=== PATIENT | male | born 1985 ===

== ENCOUNTER 2025-01-17 05:11 | Emergency (ER) | payer SELFPAY ==
[2025-01-17 05:07] VITALS: BP 140/81; PULSE 83; RESP 12; TEMP 36.9; O2SAT 99
--- NOTE | 2025-01-17 05:24 | ED.NAVMDI ---
HPI - Nausea/Vomiting/Diarrhea General Chief complaint: Nausea/Vomiting/Diarrhea <Mati Paul MD - Last Filed: 01/18/25 03:22> Stated complaint: n/v; opiate withdrawal <Mati Paul MD - Last Filed: 01/18/25 03:22> Time Seen by Provider: 01/17/25 05:16 <Mati Paul MD - Last Filed: 01/18/25 03:22> History of Present Illness HPI Narrative: 39-year-old male with a past medical history including opiate use disorder. He states that he usually snorts heroin/fentanyl. Last use 2-3 days ago. He is trying to quit and is going through withdrawals. States he has gone through withdrawal programs before without any help. He has previously been on Suboxone without any success. EMS provided him Zofran row which did not help him. Denies any other substance use such as cocaine, methamphetamines, IV drug use, alcohol use. Endorses nausea vomiting several times for last few days and denies any other symptoms such as fevers, chest pain, shortness a breath, abdominal pain. He was otherwise in his normal state of health prior to this. <Mati Paul MD - Last Filed: 01/18/25 03:22> Related Data Allergies/Adverse reactions: Allergies Allergy/AdvReac Type Severity Reaction Status Date / Time erythromycin base Allergy Unknown Pt does Verified 01/17/25 05:21 not remember reaction No Known Allergies Allergy Unknown Verified 01/17/25 05:21 olanzapine Allergy Unknown visual dist Verified 01/17/25 05:21 <Mati Paul MD - Last Filed: 01/18/25 03:22> Review of Systems Review of Systems: As reviewed above in HPI <Mati Paul MD - Last Filed: 01/18/25 03:22> PMFSH Social History Social History: Social History Smoking status: Smoker, status unknown <Mati Paul MD - Last Filed: 01/18/25 03:22> Exam Narrative: GENERAL: [Well-appearing, well-nourished, and in no acute distress.] HEAD: [Normocephalic, atraumatic.] EYES: [PERRLA and EOMI.] ENT: Nares clear, no rhinorrhea or epistaxis. Mucous membranes moist. NECK: Supple. CHEST: [Clear to auscultation. No respiratory distress.] HEART: [Regular rate and rhythm]. No murmur heard. [Normal peripheral pulses.] ABDOMEN: [Soft, nondistended], [nontender], [No rigidity or guarding] EXTREMITIES: Normal range of motion. [No edema.] SKIN: Warm, dry, no rash. NEURO: [No focal deficits]. Alert and oriented [x3.] PSYCH: [Normal mood and affect.] <Mati Paul MD - Last Filed: 01/18/25 03:22> Course Course Emergency Course: Patient is feeling much better. Up and ambulatory. Hydrated. Receive some diazepam/clonidine/buprenorphine. Discharge home. <Hermilo Stinson MD - Last Filed: 01/17/25 08:21> Vital Signs Vital signs: Vital Signs Temperature 36.9 C 01/17/25 05:07 Pulse Rate 83 01/17/25 05:07 Respiratory Rate 12 01/17/25 05:07 Blood Pressure 140/81 01/17/25 05:07 Pulse Oximetry 99 01/17/25 05:07 Oxygen Delivery Room Air 01/17/25 05:07 Temperature 36.9 C 01/17/25 05:07 Pulse Rate 87 01/17/25 07:21 Respiratory Rate 18 01/17/25 07:21 Blood Pressure 160/84 H 01/17/25 06:49 Pulse Oximetry 99 01/17/25 07:21 Oxygen Delivery Room Air 01/17/25 05:07 <Mati Paul MD - Last Filed: 01/18/25 03:22> Vital Signs Temperature 36.9 C 01/17/25 05:07 Pulse Rate 83 01/17/25 05:07 Respiratory Rate 12 01/17/25 05:07 Blood Pressure 140/81 01/17/25 05:07 Pulse Oximetry 99 01/17/25 05:07 Oxygen Delivery Room Air 01/17/25 05:07 Temperature 36.9 C 01/17/25 05:07 Pulse Rate 87 01/17/25 07:21 Respiratory Rate 18 01/17/25 07:21 Blood Pressure 160/84 H 01/17/25 06:49 Pulse Oximetry 99 01/17/25 07:21 Oxygen Delivery Room Air 01/17/25 05:07 <Hermilo Stinson MD - Last Filed: 01/17/25 08:21> Procedures EJ/Peripheral Line Neck R: EJ/Peripheral Line Date: 01/17/25 <Mati Paul MD - Last Filed: 01/18/25 03:22> EJ/Peripheral Line Time: 06:58 <Mati Paul MD - Last Filed: 01/18/25 03:22> Time Out Performed: Yes <Mati Paul MD - Last Filed: 01/18/25 03:22> Skin Cleansed in Sterile Fashion: Yes <Mati Paul MD - Last Filed: 01/18/25 03:22> Ultrasound Guided: No <Mati Paul MD - Last Filed: 01/18/25 03:22> Size (gauge): 18 <Mati Paul MD - Last Filed: 01/18/25 03:22> IV Secured and Dressing Applied: Yes <Mati Paul MD - Last Filed: 01/18/25 03:22> Patient Tolerated Procedure: well and no complications <Mati Paul MD - Last Filed: 01/18/25 03:22> MDM - Nausea/Vomiting/Diarrhea MDM Narrative Medical decision making narrative: 39-year-old male with history of opiate use disorder presenting with signs and symptoms of opiate withdrawal with an elevated cows score based on historical elements. He states he has used Suboxone before without any significant help. Last use of opiates was 2-3 days ago. He is not ill-appearing, normal vital signs, endorses nausea vomiting. No relief with Zofran. Patient was agreeable to try a combination medications here for symptom control and blood work. CBC and CMP obtained to see if there is any electrolyte disturbances or signs of infection, dehydration. He was given a mg of sublingual buprenorphine as well as 0.1 mg of p.o. clonidine for symptomatic control. Patient will be re-evaluated and treated based on response. Patient had buprenorphine and clonidine without any significant symptomatic change. Remains hemodynamically stable. EJ was established secondary to very difficult vascular access. He was given D5 LR, 2.5 mg of IV Valium and additionally mg of sublingual buprenorphine as he states he has previously been on high-dose Suboxone. Patient's laboratory studies are pending. Transition of care to oncoming ER physician Dr. Stinson at 7:00 a.m. pending laboratory studies, re-evaluation and likely discharge home if improved. <Mati Paul MD - Last Filed: 01/18/25 03:22> Medical Records Attestation: I reviewed the patient's medical records. <Mati Paul MD - Last Filed: 01/18/25 03:22> Lab Data Result diagrams: 01/17/25 06:57 01/17/25 06:57 <Mati Paul MD - Last Filed: 01/18/25 03:22> Labs: Lab Results 01/17/25 Range/Units 06:57 WBC 14.8 H (4.5-10.0) K/mm3 RBC 4.26 L (4.6-6.20) M/mm3 Hgb 12.2 L (14.0-18.0) g/dL Hct 36.9 L (42.0-52.0) % MCV 86.6 (80-100) fl MCH 28.6 (26-34) pg MCHC 33.1 (32-36) g/dl RDW 14.6 H (11.5-14.5) % Plt Count 410 H (150-375) k/mm3 MPV 9.1 (7.4-10.4) fl Immature Gran % (Auto) 0.4 (0-0.5) % Neut % (Auto) 84.9 H (45.5-73.1) % Lymph % (Auto) 9.3 L (18.3-44.2) % [place] % (Auto) 5.3 (2.6-8.5) % Eos % (Auto) 0.0 (0-4.4) % Baso % (Auto) 0.1 L (0.2-1.2) % Lymph # (Auto) 1.37 (0.9-3.2) K/mm3 [place] # (Auto) 0.8 H (0.1-0.6) K/mm3 Eos # (Auto) 0.0 (0-0.3) K/mm3 Baso # (Auto) 0.0 (0.0-0.1) K/mm3 Abs Immat Gran (auto) 0.06 H (0.00-0.031) K/mm3 Absolute Neuts (auto) 12.5 H (1.3-6.7) K/mm3 Absolute Nucleated RBC 0.000 (0.0-0.012) K/mm3 Nucleated RBC % 0.0 (0.0-0.2) % Sodium 139 (137-145) mmol/L Potassium 3.0 L (3.4-5.0) mmol/L Chloride 97 L (98-107) mmol/L Carbon Dioxide 30 (22-30) mmol/L Anion Gap 12 (4-12) mmol/L BUN 15 (9-20) mg/dL Creatinine 0.58 L (0.7-1.3) mg/dL Estim Creat Clear Calc 170 ml/min Estimated GFR > 60 (59 - ) Glucose 132 H (65-110) mg/dL Calcium 9.5 (8.4-10.2) mg/dL Total Bilirubin 0.4 (0.2-1.3) mg/dL AST 26 (17-59) U/L ALT 23 (6-50) U/L Alkaline Phosphatase 152 H (38-126) U/L Total Protein 8.0 (6.3-8.2) g/dL Albumin 4.6 (3.5-5.1) g/dL Lipase 179 (23-300) U/L <Mati Paul MD - Last Filed: 01/18/25 03:22> Lab Results 01/17/25 Range/Units 06:57 WBC 14.8 H (4.5-10.0) K/mm3 RBC 4.26 L (4.6-6.20) M/mm3 Hgb 12.2 L (14.0-18.0) g/dL Hct 36.9 L (42.0-52.0) % MCV 86.6 (80-100) fl MCH 28.6 (26-34) pg MCHC 33.1 (32-36) g/dl RDW 14.6 H (11.5-14.5) % Plt Count 410 H (150-375) k/mm3 MPV 9.1 (7.4-10.4) fl Immature Gran % (Auto) 0.4 (0-0.5) % Neut % (Auto) 84.9 H (45.5-73.1) % Lymph % (Auto) 9.3 L (18.3-44.2) % [place] % (Auto) 5.3 (2.6-8.5) % Eos % (Auto) 0.0 (0-4.4) % Baso % (Auto) 0.1 L (0.2-1.2) % Lymph # (Auto) 1.37 (0.9-3.2) K/mm3 [place] # (Auto) 0.8 H (0.1-0.6) K/mm3 Eos # (Auto) 0.0 (0-0.3) K/mm3 Baso # (Auto) 0.0 (0.0-0.1) K/mm3 Abs Immat Gran (auto) 0.06 H (0.00-0.031) K/mm3 Absolute Neuts (auto) 12.5 H (1.3-6.7) K/mm3 Absolute Nucleated RBC 0.000 (0.0-0.012) K/mm3 Nucleated RBC % 0.0 (0.0-0.2) % Sodium 139 (137-145) mmol/L Potassium 3.0 L (3.4-5.0) mmol/L Chloride 97 L (98-107) mmol/L Carbon Dioxide 30 (22-30) mmol/L Anion Gap 12 (4-12) mmol/L BUN 15 (9-20) mg/dL Creatinine 0.58 L (0.7-1.3) mg/dL Estim Creat Clear Calc 170 ml/min Estimated GFR > 60 (59 - ) Glucose 132 H (65-110) mg/dL Calcium 9.5 (8.4-10.2) mg/dL Total Bilirubin 0.4 (0.2-1.3) mg/dL AST 26 (17-59) U/L ALT 23 (6-50) U/L Alkaline Phosphatase 152 H (38-126) U/L Total Protein 8.0 (6.3-8.2) g/dL Albumin 4.6 (3.5-5.1) g/dL Lipase 179 (23-300) U/L <Hermilo Stinson MD - Last Filed: 01/17/25 08:21> Discharge Plan Discharge Clinical Impression: Opiate withdrawal <Mati Paul MD - Last Filed: 01/18/25 03:22> Patient Disposition: Home <Mati Paul MD - Last Filed: 01/18/25 03:22> Condition: Stable <Mati Paul MD - Last Filed: 01/18/25 03:22> Instructions: Antibiotic Form, Narcotic Withdrawal (ED) <Mati Paul MD - Last Filed: 01/18/25 03:22> Additional Instructions: Return ER if you have thoughts of harming herself or others, you have chest pain with shortness of breath, or you have additional concerns <Mati Paul MD - Last Filed: 01/18/25 03:22> Patient Language: Mauritian <Mati Paul MD - Last Filed: 01/18/25 03:22> Prescriptions: New buprenorphine HCl 8 mg tablet, sublingual 16 mg sublingual DAILY 7 Days Qty: 14 0RF <Mati Paul MD - Last Filed: 01/18/25 03:22> Follow-up/Referrals: Los Davidson MD [Non-Staff] - Lakhwinder Alvarez MD [Physician] - 1 Week <Mati Paul MD - Last Filed: 01/18/25 03:22>
[2025-01-17] MEDS: cloNIDine HCL 0.1 MG TABLET PO (05:38)
[2025-01-17] MEDS: BUPRENORPHINE HCL (*CRX) 8 MG SUBLINGUAL TABLET SUBLINGUAL ×2 (05:38→07:36)
--- NOTE | 2025-01-17 05:42 | PC.NURSE ---
Multiple RNs attempted to poke pt for blood. social work program coordinator tried and had no luck either. Phlebotomy called and notified. They state they won't be able to get blood draw until around 0630 this morning.
[2025-01-17 06:49] VITALS: BP 160/84; PULSE 65; RESP 18; O2SAT 98
--- NOTE | 2025-01-17 07:01 | PC.NURSE ---
Unable to find suitable vein access for straight stick for blood work. Dr Paul notified for need for EJ to obtain blood and have IV access.
[2025-01-17] MEDS: diazePAM INJ (*CRX) 10 MG/2 ML SYRINGE 2.5 MG IV PUSH (07:03)
[2025-01-17 07:06] LABS: Basophils Percent Auto 0.1 % (0.2-1.2); Hematocrit 36.9 % (42.0-52.0); Hemoglobin 12.2 g/dL (14.0-18.0); Immature Granulocyte Absolute 0.06 K/mm3 (0.00-0.031); Immature Granulocyte Percent A 0.4 % (0-0.5); Lymphocytes Absolute Auto 1.37 K/mm3 (0.9-3.2); Lymphocytes Percent Auto 9.3 % (18.3-44.2); Mean Corpuscular HGB Conc 33.1 g/dl (32-36); Mean Corpuscular Hemoglobin 28.6 pg (26-34); Mean Corpuscular Volume 86.6 fl (80-100); Mean Platelet Volume 9.1 fl (7.4-10.4); Monocytes Absolute Auto 0.8 K/mm3 (0.1-0.6); Monocytes Percent Auto 5.3 % (2.6-8.5); Neutrophils Absolute Auto 12.5 K/mm3 (1.3-6.7); Neutrophils Percent Auto 84.9 % (45.5-73.1); Platelet Count Result 410 k/mm3 (150-375); Red Blood Count 4.26 M/mm3 (4.6-6.20); Red Cell Distribution Width 14.6 % (11.5-14.5); White Blood Count 14.8 K/mm3 (4.5-10.0)
[2025-01-17 07:14] LABS: Alanine Aminotransferase 23 U/L (6-50); Albumin Level 4.6 g/dL (3.5-5.1); Alkaline Phosphatase 152 U/L (38-126); Anion Gap 12 mmol/L (4-12); Aspartate Amino Transferase 26 U/L (17-59); Bilirubin,Total 0.4 mg/dL (0.2-1.3); Blood Urea Nitrogen 15 mg/dL (9-20); Calcium 9.5 mg/dL (8.4-10.2); Carbon Dioxide 30 mmol/L (22-30); Chloride 97 mmol/L (98-107); Estimated CRCL calculation 170 ml/min; Estimated Glomerular Filt Rate > 60; Glucose 132 mg/dL (65-110); Lipase 179 U/L (23-300); Sodium 139 mmol/L (137-145)
[2025-01-17] MEDS: DEXTROSE 5%/LACTATED RINGERS 1,000 ML 999 ML IV CONT (07:15)
[2025-01-17 07:21] VITALS: PULSE 87; RESP 18; O2SAT 99
== END 2025-01-17 08:38 | disposition home or self-care (01) ==
PROVIDERS: Emergency Provider Student in an Organized Health Care Education/Training Program
DX: F11.23 Opioid dependence with withdrawal (principal)
CPT/HCPCS: 36415; 80053; 83690; 85025; 96374; 99284; A9270; J0571; J3360; J7121

== ENCOUNTER 2025-06-02 14:24 | Emergency (ER) | payer OTHER, SELFPAY ==
--- NOTE | 2025-06-02 14:26 | ED_ITS ---
HPI - Skin/Abscess/Foreign Bdy General Chief complaint: Skin/Abscess/Foreign Body Stated complaint: Cyst On Neck Time Seen by Provider: 06/02/25 14:50 Source: patient, RN notes reviewed and old records reviewed Mode of arrival: ambulatory Limitations: no limitations History of Present Illness HPI narrative: 39-year-old male presents to the [facility] with a infected cyst to the left neck States it became inflamed a couple of days ago. History of the cyst needing drainage twice before. Once was open by his doctor, once was treated by M self. Fluctuant area, 4 x 4 cm. Onset (ago): day(s) (2) Treatments prior to arrival: none Related Data Allergies Allergy/AdvReac Type Severity Reaction Status Date / Time erythromycin base Allergy Unknown Pt does Verified 06/02/25 14:42 not remember reaction olanzapine Allergy Unknown visual dist Verified 06/02/25 14:42 Review of Systems 2 Review of Systems: All systems reviewed & are unremarkable except as noted in HPI and below Constitutional: Constitutional: Reports no additional constitutional complaints ENT: Reports system reviewed and no additional complaints, except as documented Respiratory: Respiratory: Reports no additional respiratory complaints, Denies chest congestion, Denies cough and Denies dyspnea Integumentary/Breasts: Skin/Breast: Reports as per HPI PMFSH Social History Social History Smoking status: Smoker, status unknown Comments At the time of my signature, I reviewed and agree with the nursing past medical, surgical, social, and family history. There is no relevant family history pertinent to the patient complaint. Exam 2 Const: General: cooperative, healthy appearing, comfortable, no acute distress, well developed, alert and well nourished Nutritional Appearance: w ell nourished Orientation/consciousness: patient oriented x3 Limitations: no limitations HENMT: Head: normal to inspection Mouth: Yes Normal oral and palatal mucosa present, Yes lip normal, Yes tongue normal and Yes moist mucous membranes T eeth and gingiva: poor dentition Eyes: General: appearance normal, both eyes and all related structures A lignment and Position: alignment normal Neck: Neck: normal visual inspection, full ROM, no lymphadenopathy and no meningeal signs Neck images: 1. Raised fluctuant area, with localized redness. Chest: Chest palpation & inspection: normal inspection of the chest Resp: Effort & Inspection: normal respiratory effort and able to speak in complete sentences Cardio: Rate: regular rate Skin: General skin exam: normal color and no rashes or lesions noted Neuro: General: patient oriented x3, gait normal, moves all extremities and no meningeal signs Cognition (Neuro): normal cognition Speech: normal speech Gait exam (Neuro): Normal gait present Extrem: General: normal to inspection, full ROM, capillary refill normal and normal gait Psych: Appearance: grossly normal and well kempt Mental Status: mental status grossly normal Speech and movement: Normal speech and movement present and Clear speech present Affect: normal affect Attitude: cooperative Course Course Level of Care: Express Care Visit Vital Signs Vital signs: Vital Signs Temperature 97.9 F 06/02/25 14:39 Pulse Rate 81 06/02/25 14:39 Respiratory Rate 16 06/02/25 14:39 Blood Pressure 119/73 06/02/25 14:39 Pulse Oximetry 100 06/02/25 14:39 Oxygen Delivery Room Air 06/02/25 14:39 Temperature 97.9 F 06/02/25 14:39 Pulse Rate 81 06/02/25 14:39 Respiratory Rate 16 06/02/25 14:39 Blood Pressure 119/73 06/02/25 14:39 Pulse Oximetry 100 06/02/25 14:39 Oxygen Delivery Room Air 06/02/25 14:39 Reviewed Procedures Abscess I/D neck: Date of Incision: 06/02/25 Time of Incision: 15:10 Side (if applicable): left Technique: needle aspiration and incised with #11 blade Amount of fluid expressed (mL): 60 Irrigation: No Abcess I&D Additional Comments: Area cleaned Betadine, originally used 18 gauge needle, small amount of pus collected, culture collected. Use an 11 blade, larger open area made. Large amount of drainage noted. Area cleaned again with Betadine MDM - Skin/Abscess/Foreign Bdy MDM Narrative Medical decision making narrative: Patient sitting in exam room. Patient is nontoxic, vitals stable. Patient presents with what appears to be as lipoma cyst, infected. Will cover with antibiotic, culture sent Patient appropriate for outpatient treatment with close follow-up Discharge instructions reviewed with patient, as well as provided in writing per nursing staff. The instructions also include specific and strict return/GO TO THE ER as well as f/u information. All questions have been answered, and the patient deny any further questions with discharge and discharge plan. Some parts of this dictation were generated by voice recognition software and may contain typographical and/or grammatical inaccuracies. Differential Diagnosis Differential diagnosis: Likely abscess of skin or subcutaneous tissue, viral exanthem, cellulitis, impetigo and contact dermatitis Critical Care Time Critical Care Time Critical Care Time: No Discharge Plan Discharge Clinical Impression: Abscess, Hx of sebaceous cyst Patient Disposition: Home Condition: Stable Instructions: Antibiotic Form, Abscess (ED), Lipoma (ED) Additional Instructions: Wash area twice daily with warm soapy water, pat dry, keep it covered when not at home. Leave it open to air when at home and it is not draining Follow-up with primary care provider this week Follow-up with surgeon For worsening symptoms go directly to the emergency room Patient Language: [place] Prescriptions: New doxycycline monohydrate 100 mg tablet 100 mg PO BID Qty: 14 0RF No Action buprenorphine HCl 8 mg tablet, sublingual 16 mg sublingual DAILY 7 Days Qty: 14 0RF Follow-up/Referrals: Lorenza Syed MD [Physician, General Surgery] - 3 Days Clinical Impression: Abscess UNKNOWN,DOCTOR [Non-Staff] Time of Disposition: 15:25
[2025-06-02 14:39] VITALS: BP 119/73; PULSE 81; RESP 16; TEMP 36.6; O2SAT 100
== END 2025-06-02 15:29 | disposition home or self-care (01) ==
PROVIDERS: Emergency Provider Nurse Practitioner; PCP Family Medicine
DX: L02.11 Cutaneous abscess of neck (principal)
CPT/HCPCS: 10060; 87070; 87075; 99213; G0463